=== PATIENT | male | born 1980 | race Two or more races ===

== ENCOUNTER 2019-01-08 21:16 | Emergency (ER) | payer BC, SELFPAY ==
[~2019-01-08] VITALS: Ht 185.4 cm; Wt 116.8 kg
--- NOTE | 2019-01-08 21:49 | NUR ---
PT HAS SORE THROAT SINCE THURSDAY. WAS FEBRILE YESTERDAY.
[2019-01-08] MEDS ORDERED: DEXAMETHASONE 4 MG TABLET ONE (21:52)
[2019-01-08] MEDS ORDERED: DEXAMETHASONE 4 MG TABLET PO ONE (22:00)
[2019-01-08 22:34] VITALS: BP 132/72
--- NOTE | 2019-01-08 22:34 | NUR ---
Patient/Caregiver given discharge instructions and they have confirmed that they understand the instructions. Patient ambulatory with steady gait.
== END 2019-01-08 22:36 | disposition home or self-care (01) ==
LOC: ED 21:46
DX: J02.8 Acute pharyngitis due to other specified organisms (principal); B97.89 Other viral agents as the cause of diseases classified elsewhere; J45.909 Unspecified asthma, uncomplicated
CPT/HCPCS: 87081; 87880; 99283

== ENCOUNTER 2019-10-01 23:08 | Emergency (ER) | payer BC ==
[~2019-10-01] VITALS: Ht 185.4 cm; Wt 115.0 kg
[2019-10-01] MEDS ORDERED: ONDANSETRON ODT 4 MG ONE ×2 (23:27→23:28)
[2019-10-01] MEDS ORDERED: ONDANSETRON ODT 4 MG PO ONE (23:30)
[2019-10-01 23:59] LABS: BASOPHILS # (AUTO) 0.02 x10^3/uL (0-0.1); BASOPHILS % (AUTO) 0 % (0-1); EOSINOPHILS # (AUTO) 0.03 x10^3/uL (0-0.4); EOSINOPHILS % (AUTO) 0 % (1-7); LYMPHOCYTES # (AUTO) 0.81 x10^3/uL (1-3.4); LYMPHOCYTES % (AUTO) 6 % (22-44); MD NO; MEAN CORPUSCULAR HEMOGLOBIN 31.1 pg (27.5-34.5); MEAN CORPUSCULAR HGB CONC 33.1 g/dL (33.2-36.2); MEAN CORPUSCULAR VOLUME 93.8 fL (81-97); MEAN PLATELET VOLUME 10.9 fL (7.4-10.4); MONOCYTES # (AUTO) 0.39 x10^3/uL (0.2-0.8); MONOCYTES % (AUTO) 3 % (2-9); NEUTROPHILS # (AUTO) 12.96 x10^3/uL (1.8-6.8); NEUTROPHILS % (AUTO) 91 % (42-75); PLATELET COUNT 167 x10^3/uL (130-400); RED BLOOD COUNT 5.97 x10^6/uL (4.38-5.82); RED CELL DISTRIBUTION WIDTH 13.1 % (9.4-14.8)
[2019-10-02 00:10] LABS: ALBUMIN 4.2 g/dL (3.4-5.0); ANION GAP 6 mmol/L (5-15); CALCIUM 8.9 mg/dL (8.5-10.1); CHLORIDE 106 mmol/L (98-107)
[2019-10-02 00:14] LABS: ALANINE AMINOTRANSFERASE 46 U/L (12-78); ALKALINE PHOSPHATASE 163 U/L (45-117); BILIRUBIN,TOTAL 1.4 mg/dL (0.2-1.0); TOTAL PROTEIN 8.4 g/dL (6.4-8.2)
[2019-10-02] MEDS ORDERED: SODIUM CHLORIDE 0.9% 1,000ML IVBOLUS ONE (00:30)
[2019-10-02] MEDS ORDERED: FAMOTIDINE 20 MG/2 ML IV ONE (00:30)
[2019-10-02] MEDS ORDERED: ONDANSETRON 2MG/ML, 2ML IVPush ONE (00:30)
[2019-10-02] MEDS ORDERED: ONDANSETRON 2MG/ML, 2ML ONE (00:30)
[2019-10-02] MEDS ORDERED: FAMOTIDINE 20 MG/2 ML ONE (00:30)
[2019-10-02 00:36] VITALS: BP 115/75
--- NOTE | 2019-10-02 01:37 | NUR ---
PT PROVIDED PO FLUIDS, TOLERATING WELL SO FAR
--- NOTE | 2019-10-02 02:17 | NUR ---
Patient/Caregiver given discharge instructions and they have confirmed that they understand the instructions. Patient ambulatory with steady gait. iv dc prior to pt leaving facility
== END 2019-10-02 02:18 | disposition home or self-care (01) ==
LOC: ED 10-02 02:10
DX: A08.4 Viral intestinal infection, unspecified (principal); J45.909 Unspecified asthma, uncomplicated; R11.2 Nausea with vomiting, unspecified
CPT/HCPCS: 36415; 80053; 85025; 96361; 96374; 96375; 99283; J2405; J3490; J7030